=== PATIENT | female | born 1960 | race Caucasian/White ===

== ENCOUNTER 2023-09-16 10:23 | Emergency (ER) | payer OTHER ==
[~2023-09-16 10:23] MED LIST: Iopamidol 370 76% 100 ML VIAL ONE
[2023-09-16] MEDS ORDERED: Ondansetron PF 4 MG/2 ML Vial ONE ×2 (11:24→14:21)
[2023-09-16] MEDS ORDERED: Pantoprazole 40 MG VIAL ONE (11:25)
[2023-09-16] MEDS ORDERED: Sodium Chloride 0.9% 1,000 ML ONE (11:25)
[2023-09-16] MEDS ORDERED: fentaNYL 50 mcg/mL 1 mL Vial ONE ×2 (11:25→14:21)
[2023-09-16 11:39] LABS: #Lymphocytes 0.7 thou/uL (1.20-3.40); #Monocytes 0.7 thou/uL (0.11-0.59); #Neutrophils 14.1 thou/uL (1.40-6.50); %Basophils 0.3 % (0.0-1.0); %Lymphocytes 4.4 % (21.0-51.0); %Monocytes 4.2 % (0.0-10.0); %Neutrophils 91.1 % (42.0-75.0); Hematocrit 46.1 % (36.0-47.0); Hemoglobin 15.3 g/dL (12.0-16.0); Mean Corpuscular HGB CONC 33.2 g/dL (32.0-36.0); Mean Corpuscular Hemoglobin 30.7 pg (27.0-31.0); Mean Corpuscular Volume 92.5 fl (78.0-98.0); Mean Platelet Volume 6.9 fL (7.4-10.4); Platelet Count 329 10x3/uL (130-400); RBC Distribution Width 11.6 % (11.5-14.5); Red Blood Cell (RBC) Count 4.99 mill/uL (4.20-5.40); White Blood Cell (WBC) Count 15.5 10x3/uL (4.8-10.8)
[2023-09-16 11:56] LABS: Troponin I 0.027 ng/mL (< 0.028)
[2023-09-16 12:01] LABS: AST (SGOT) 32 U/L (5-34); Albumin 4.8 g/dL (3.4-4.8); Alkaline Phosphatase 73 U/L (40-110); Anion Gap 20 mmol/L (10-20); BUN (Urea Nitrogen) 14 mg/dL (9.8-20.1); Bilirubin, Total 0.6 mg/dL (0.2-1.2); Calc. Creatinine Clearance 0 mL/min (70-130); Calcium 9.9 mg/dL (7.8-10.44); Carbon Dioxide 21 mmol/L (23-31); Chloride 100 mmol/L (98-107); Estimated GFR 78; Glucose 193 mg/dL (80-115); Lipase 32 U/L (8-78); Potassium 4.1 mmol/L (3.5-5.1); Protein, Total 7.8 g/dL (5.8-8.1); Sodium 137 mmol/L (136-145)
[2023-09-16 12:37] LABS: ALT (SGPT) 27 U/L (8-55)
[2023-09-16 13:22] LABS: Bacteria/HPF None Seen HPF (None Seen); Bilirubin Negative (Negative); Blood, Urine Trace (Negative); CAUTI Indications for Culture Pelvic or flank pain; Clarity Clear (Clear); Glucose, Urine (Dipstick) 250 mg/dL (Negative); Ketone, Urine Trace mg/dL (Negative); Leukocyte Negative (Negative); Nitrite Negative (Negative); Protein, Urine (Dipstick) Negative (Neg-Trace); RBC/HPF None Seen HPF (0-3); Squamous Epithelial None Seen HPF (0-3); Urine Culture Reflex No No; Urobilinogen 0.2 mg/dL (Less than 2); WBC/HPF None Seen HPF (0-3)
[2023-09-16] MEDS ORDERED: Sodium Chloride 0.9% 100 ML ONE (13:56)
[2023-09-16] MEDS ORDERED: Piperacillin/Tazobactam 3.375 GM VIAL ONE (13:56)
[2023-09-16] MEDS ORDERED: Ketorolac Tromethamine 30 MG/ML VIAL ONE (14:21)
== END 2023-09-16 15:48 | disposition home or self-care (01) ==
LOC: NAV ERS 10:23
DX: K80.00 Calculus of gallbladder with acute cholecystitis without obstruction (principal)
CPT/HCPCS: 36415; 74022; 74177; 80053; 81001; 83690; 84484; 85025; 93005; 96361; 96365; 96375; 96376; C9113; J1885; J2405; J2543; J3010; J3490; J7050; Q9967